=== PATIENT | male | born 1960 | race Caucasian/White ===

== ENCOUNTER 2017-07-14 23:11 | Inpatient (IN) | payer MEDICARE, OTHER ==
[~2017-07-14] VITALS: Ht 193 cm; Wt 117.9 kg
[~2017-07-14 23:11] MED LIST: CENTRUM SILVER1 EAC3 PO; DOXYCYCLINE HY100 MG PO; FUROSEMIDE40 MG PO; HUMULIN N100 UNITS/; HUMULIN R100 UNIT/2; IRON325 M1; KRISTALOSE20 GM PO; NADOLOL20 MG PO; SPIRONOLACTONE50 MG PO; VITAMIN D1000 UNI1 PO
--- OUTSIDE RECORDS SUMMARY | 2017-07-14 23:14 | XMS REPORT | Clinical Summary ---
Author Author [facility] Organization [facility] Address Unknown Phone Unavailable Care Team Providers Care Twist Packer Name Role Phone Unknown, Phys PCP Unavailable Allergies Active Allergy Reactions Severity Noted Date Comments Morphine 10/09/2015 Scratching; hives Opioids - Morphine 11/27/2015 Analogues Other High 10/14/2015 Cloth tape Current Medications Prescription Sig. Disp. Refills Start End Date Status Date omeprazole magnesium 20 Take 1 capsule by mouth 2 Active mg capsule,delayed (two) times a day. release(DR/EC) furosemide (LASIX) 40 MG Take 40 mg by mouth Active tablet daily. nadolol (CORGARD) 20 MG Take 10 mg by mouth Active tablet daily. spironolactone Take 50 mg by mouth Active (ALDACTONE) 50 MG tablet daily. loratadine (WAL-ITIN) 10 Take 10 mg by mouth Active mg tablet daily. For allergies cholecalciferol, vitamin Take 2,000 Units by mouth Active D3, (VITAMIN D3) 2,000 daily. unit tablet MULTIVIT-MINERALS/FOLIC Take 1 tablet by mouth 2 Active ACID (SPECTRAVITE ADULT (two) times a day. ORAL) BUMETanide (BUMEX) 2 MG Take 2 mg by mouth 2 Active tablet (two) times a day. riFAXimin (XIFAXAN) 550 Take 550 mg by mouth 2 Active mg tablet (two) times a day. tamoxifen (NOLVADEX) 10 Take 10 mg by mouth 2 Active MG chemo tablet (two) times a day. INSULIN REGULAR, HUMAN Inject 18 Units as Active (NOVOLIN R INJ) directed 3 (three) times a day. 18 units in the morning, 16 units during lunch, and 15 units at dinner time insulin NPH (NovoLIN N) Inject under the skin 2 Active 100 unit/mL injection (two) times a day before meals. 30 units in the morning and 20 units at bedtime zolpidem (AMBIEN) 10 mg Take 20 mg by mouth Active tablet nightly as needed for sleep. potassium chloride Take 10 mEq by mouth Active (K-DUR,KLOR-CON) 10 MEQ daily. CR tablet GENERLAC 10 gram/15 mL TAKE 30 ML BY MOUTH TID. 5 02/22/20 Active solution TITRATE TO HAVE 3 TO 5 16 SOFT BOWEL MOVEMENTS PER DAY UNABLE TO FIND Place 4 drops under the Active tongue daily. Med Name: special allergy drops made by Dr. Frazier Active Problems Problem Noted Date Periumbilical abdominal pain 05/20/2016 Disorder of liver 05/20/2016 S/P hernia repair 05/03/2016 Ventral hernia 05/03/2016 Preop cardiovascular exam 04/05/2016 Type 2 diabetes mellitus without complication 04/05/2016 Chronic nonalcoholic liver disease 03/09/2016 Hernia of abdominal cavity 03/09/2016 Incisional hernia with obstruction but no gangrene 10/15/2015 Non-alcoholic cirrhosis 10/09/2015 Esophageal varices without bleeding 10/09/2015 Encounters Date Type Specialty Care Team Description 12/29/2016 Telephone Transplant Mitzy Guerrero RN Referral - Hepatobiliary Txp after 07/13/2016 Immunizations Name Dates Previously Given Next Due INFLUENZA QUAD PF 05/05/2016 Family History Medical History Relation Name Comments Hypertension Brother Diabetes Father Hypertension Father Hypertension Mother Relation Name Status Comments Brother Father Mother Social History Tobacco Use Types Packs/Day Years Used Date Former Smoker 4 Smokeless Tobacco: Never Used Alcohol Use Drinks/Week oz/Week Comments No Sex Assigned at Date Recorded Not on file Last Filed Vital Signs Vital Sign Reading Time Taken Blood Pressure 142/64 07/14/2016 10:16 AM CDT Pulse 70 07/14/2016 10:16 AM CDT Temperature - - Respiratory Rate - - Oxygen Saturation 100% 07/14/2016 10:16 AM CDT Inhaled Oxygen - - Concentration Weight 117 kg (259 lb) 07/14/2016 10:16 AM CDT Height 190.5 cm (6' 3") 07/14/2016 10:16 AM CDT Body Mass Index 32.37 07/14/2016 10:16 AM CDT Plan of Treatment Health Maintenance Due Date Last Done Comments FOOT EXAM 1970 OPHTHALMOLOGY EXAM 1970 COLONOSCOPY 2010 INFLUENZA VACCINE 11/22/2016 05/05/2016 Implants Implanted Type Area Delivery Aide Device Expiration Model / Identifier Date Serial / Lot Mesh Hrnia Phasix 6 X 8in Surgical N/A: [employer] 12/19/2017 [id number] / [id number] - [id number] Mesh or Abdomen, / Implanted: 05/03/2016 (Quantity not Tissue Middle [id number] on file) Barrier Quadrant/N Products on Specific Procedures Procedure Name Priority Date/Time Associated Diagnosis Comments CV STRESS TEST NUCLEAR Routine 07/15/2016 Pulmonary hypertension Results for this CARDIO 2:36 PM CDT Abnormal EKG procedure are in the results section. ECHOCARDIOGRAM 2D Routine 07/14/2016 Pulmonary hypertension Results for this COMPLETE W MMODE SPECTRAL 10:10 AM CDT Abnormal EKG procedure are in the COLOR DOPPLER (94121) results section. after 07/13/2016 Results * Cv exercise treadmill stress (for nuclear or echo) (07/15/2016 2:36 PM) Component Value Ref Range Resting HR 71 Resting BP 142 Peak MET Achieved 1.0 Protocol Name Lexiscan Time in Exercise Phase 00:00:11 Max Systolic BP 153 Max Diastolic BP 67 Max Heart Rate 84 Max Predicted Heart Rate 164 Target HR Formula (220 - Age)*85% Test Indication Abnormal ECG Pulmonary Hypertension Arrhy During Ex ECG Interp Before EX ECG Interp During Ex Ex Summary Comment Overall HR Response to Exercise Overall BP Response To Exercise Reason for Termination Lexiscan protocol/headache Stress Test Impression Waveform interpreted in report associated with image study. No interpretation is provided as part of this Stress ECG report.--Electronically Signed By Helen SHER, Glenn Redman ([id number]), make up editor Karin Oliver ([id number]) on 07/19/2016 11:46:34 AM Specimen Performing Laboratory [facility] [address] [id number] * Cv myocardial perfusion (07/15/2016 2:36 PM) Specimen Performing Laboratory [facility] [address] [place] [address] Narrative Nuclear Cardiology Laboratory [address] [facility], [address] [place] [phone] Fax: Myocardial Perfusion Imaging Report Pat.Name:DOUGLAS MOLINA Pat.ID:[id number] St.Date: 07/14/2016 Refer.MD:SHERIDAN MELENDEZ MD Exam Time: 11:00:00 AM Study Type:Myocardial Perfusion Imaging Height:73inWeight:259lb BSA: 2.4 s7VNWEtq:1959,56Y Sex: MALE Nuclear Tech:Pita Carter, [facility] Pat. Stat.:OutpatientNuclear Event ID:[id number] Order ID:[id number] Reason for Study:Abnormal EKG* History / Clinical:DM, ESLD, HLD Procedures:Two Day Stress / Rest Race: Clinical Symptoms:Regadenoson SUMMARY: BASELINE ECGNormal Sinus Rhythm, LAFB, Nonspecific ST abnormality STRESS TEST RESULTS Maximal Predicted HR164 beats/minute 85% Maximal Predicted HR 139 beats/minute Stress Test Duration1 minutes 00 seconds Resting Heart Rate71 beats/minute Maximal Heart Rate84 beats/minute Resting Blood Vukltzol979/64 mmHg Maximal Blood Rpfawebt565/67 mmHg % Maximal Heart Rate Achieved 51% Symptoms During TestHeadache, Shortness of breath Reason for Stopping TestAs per regadenoson protocol Maximal ST-segment shiftNone Stress-Induced Arrhythmias None Ischemic electrocardiographic changes (ST-segment depression) did not occur at peak regadenoson stress._. STRESS TEST INTERPRETATION Normal maximal regadenoson stress test. SCINTIGRAPHIC RESULTS Perfusion Defect Size (% LV) 0 % Total 0 % Ischemia 0 % Scar Left Ventricular Perfusion Results There is normal tracer distribution during stress and rest. Gated SPECT Results The post-stress left ventricular ejection fraction is 74 % with normal regional wall motion and left ventricular thickening.Left ventricular end-diastolic volume is 159 ml; end-systolic volume is41 ml. The left ventricle is mildly enlarged at stress and at rest.The right ventricle is enlarged with normal wall motion. Conclusion Normal regadenoson Tc-99m tetrofosmin myocardial perfusion study. The left ventricular ejection fraction is normal. Moderate LV and RV hypertrophy are present.Mild LV and RV dilatation are present. Comments Patients with a normal stress myocardial perfusion study have a low (< 1%) annual risk of cardiac or nonfatal myocardial infarction. Study Quality/Artifacts The study quality is good. The mild reduction in apical-septal, mid and basal inferior wall counts during stress is probably due to diaphragmatic and other soft tissue attenuation artifacts rather than coronary artery disease. Comparison to Previous Study The previous study dated 08/05/2008 was also normal with a left ventricular ejection fraction of 60%. Signed 07/16/2016 06:38 PM Glenn Cervantes MD Procedure Note Interface, Radiology Results In - 07/16/2016 6:39 PM CDT Nuclear Cardiology Laboratory [address] [place] [address], [address] [place] [address] Myocardial Perfusion Imaging Report Pat.Name: DOUGLAS MOLINA Pat.ID: [id number] St.Date: 07/14/2016 Refer.MD: SHERIDAN MELENDEZ MD Exam Time: 11:00:00 AM Study Type:Myocardial Perfusion Imaging Height: 73in Weight: 259lb BSA: 2.4 m2 Age: 11 1960,56Y Sex: MALE Nuclear Tech:RUI SantanaMT, [facility](CT) Pat. Stat.:Outpatient Nuclear Event ID:[id number] Order ID: [id number] Reason for Study:Abnormal EKG* History / Clinical:DM, ESLD, HLD Procedures:Two Day Stress / Rest Race: Clinical Symptoms:Regadenoson SUMMARY: BASELINE ECG Normal Sinus Rhythm, LAFB, Nonspecific ST abnormality STRESS TEST RESULTS Maximal Predicted HR 164 beats/minute 85% Maximal Predicted HR 139 beats/minute Stress Test Duration 1 minutes 00 seconds Resting Heart Rate 71 beats/minute Maximal Heart Rate 84 beats/minute Resting Blood Pressure 142/64 mmHg Maximal Blood Pressure 153/67 mmHg % Maximal Heart Rate Achieved 51% Symptoms During Test Headache, Shortness of breath Reason for Stopping Test As per regadenoson protocol Maximal ST-segment shift None Stress-Induced Arrhythmias None Ischemic electrocardiographic changes (ST-segment depression) did not occur at peak regadenoson stress. _. STRESS TEST INTERPRETATION Normal maximal regadenoson stress test. SCINTIGRAPHIC RESULTS Perfusion Defect Size (% LV) 0 % Total 0 % Ischemia 0 % Scar Left Ventricular Perfusion Results There is normal tracer distribution during stress and rest. Gated SPECT Results The post-stress left ventricular ejection fraction is 74 % with normal regional wall motion and left ventricular thickening. Left ventricular end-diastolic volume is 159 ml; end-systolic volume is 41 ml. The left ventricle is mildly enlarged at stress and at rest. The right ventricle is enlarged with normal wall motion. Conclusion Normal regadenoson Tc-99m tetrofosmin myocardial perfusion study. The left ventricular ejection fraction is normal. Moderate LV and RV hypertrophy are present. Mild LV and RV dilatation are present. Comments Patients with a normal stress myocardial perfusion study have a low (< 1%) annual risk of cardiac or nonfatal myocardial infarction. Study Quality/Artifacts The study quality is good. The mild reduction in apical-septal, mid and basal inferior wall counts during stress is probably due to diaphragmatic and other soft tissue attenuation artifacts rather than coronary artery disease. Comparison to Previous Study The previous study dated 08/05/2008 was also normal with a left ventricular ejection fraction of 60%. Signed 07/16/2016 06:38 PM Glenn Cervantes MD * Clinic Performed Echocardiogram complete w contrast and 3D if needed (2016 10:10 AM) Specimen Performing Laboratory [facility] [address] [place] [address] [facility] Echocardiography Report Pat.Name:DOUGLAS MOLINA Pat.ID:[id number] .Date: 07/14/2016 Refer.MD:SHERIDAN MELENDEZ MD Exam Time: 8:18:00 AMStudy Type:Routine Echo Height:75inWeight:259lb BSA: 2.45 m2 DOBAge:1959,56Y Sex: MALEBP: 151/80 HR:66 bpmSonogrphr: Sherine Yeung RDCS Pat. Stat.:OutpatientRoom:[facility] TapeVol: [facility], Study Status:Final Echo Event ID:[id number] Order ID:[id number] Reason for Study:Pulmonary Hypertension, Abnormal EKG History / Clinical:Cancer, Diabetes, Cirrhosis Procedures:2D Echo, Colorflow Doppler, Intravenous Saline Contrast Race:C FINDINGS: LV: LV size is normal. There is moderate concentric LV hypertrophy.LV function is hyperdynamic. Overall wall motionis hyperdynamic. Estimated EF is >70%. RV: RV size is mildly enlarged. RV function is lower limits of normal. LA: LA volume is mildly enlarged. RA: RA volume is upper limits of normal. AO: Aortic root diameter is normal. DEISI: No pericardial effusion. AV: No structural AV abnormalities noted. MV: No structural MV abnormalities noted. PV: No structural PV abnormalities noted. TV: No structural TV abnormalities noted. Other:Insufficient TR jet to estimate PA systolic pressure. However,based on RVOT PW Doppler signal and the incomplete TRsignal, PA systolic pressure islikely elevated. [facility] for assessment of PA pressures, if clinically indicated. MEASUREMENTS: 2D Parasternal Long [place] LVIDd5.7 cmIndex 2.3 cm/m LVPWd1 cm LVIDs2.9 cmLA Ds 3.9 cm LV%fs 48.2 % Ao Rtd 3.9 cm Index1.6 cm/m IVSd 1.1 cm LA Sng Plane LA Area 28.1 cm2(8.8-23.4) LA Vol94.2 ml Index38.5 ml/m LA LngAx 6.9 cm RA Sng Plane RA Area 21.8 cm2(8.3-19.5) RA Vol72.5 ml Index29.6 ml/m RA LngAx 5.8 cm DOPPLER LVOT Stroke Vol LVOT 2.1 cmLVOT CO 7.6 l/min LVOT TVI31.7 cmLVOT CI 3.1 l/m/m2 LVOT Tm313 msecHR 67 bpm LVOT SV113.1 ml Signed 07/15/2016 03:06 PM Enio Leon M.D. Procedure Note Interface, Radiology Results In - 07/15/2016 3:07 PM CDT [facility] Echocardiography Report Pat.Name: DOUGLAS MOLINA.ID: [id number] .Date: 07/14/2016 Refer.MD: SHERIDAN MELENDEZ MD Exam Time: 8:18:00 AM Study Type:Routine Echo Height: 75in Weight: 259lb BSA: 2.45 m2 Age: 11 1960,56Y Sex: MALE BP: 151/80 HR: 66 bpm Sonogrphr: Sherine Yeung RDCS Pat. Stat.:Outpatient Room: 19 [facility] Vol: [facility], Study Status:Final Echo Event ID:[id number] Order ID: [id number] Reason for Study:Pulmonary Hypertension, Abnormal EKG History / Clinical:Cancer, Diabetes, Cirrhosis Procedures:2D Echo, Colorflow Doppler, Intravenous Saline Contrast Race: C FINDINGS: LV: LV size is normal. There is moderate concentric LV hypertrophy. LV function is hyperdynamic. Overall wall motion is hyperdynamic. Estimated EF is >70%. RV: RV size is mildly enlarged. RV function is lower limits of normal. LA: LA volume is mildly enlarged. RA: RA volume is upper limits of normal. AO: Aortic root diameter is normal. DEISI: No pericardial effusion. AV: No structural AV abnormalities noted. MV: No structural MV abnormalities noted. PV: No structural PV abnormalities noted. TV: No structural TV abnormalities noted. Other: Insufficient TR jet to estimate PA systolic pressure. However, based on RVOT PW Doppler signal and the incomplete TR signal, PA systolic pressure is likely elevated. Recommend [facility] for assessment of PA pressures, if clinically indicated. MEASUREMENTS: 2D Parasternal Long [place] LVIDd 5.7 cm Index 2.3 cm/m LVPWd 1 cm LVIDs 2.9 cm LA Ds 3.9 cm LV%fs 48.2 % Ao Rtd 3.9 cm Index 1.6 cm/m IVSd 1.1 cm LA Sng Plane LA Area 28.1 cm2 (8.8-23.4) LA Vol 94.2 ml Index 38.5 ml/m LA LngAx 6.9 cm RA Sng Plane RA Area 21.8 cm2 (8.3-19.5) RA Vol 72.5 ml Index 29.6 ml/m RA LngAx 5.8 cm DOPPLER LVOT Stroke Vol LVOT 2.1 cm LVOT CO 7.6 l/min LVOT TVI 31.7 cm LVOT CI 3.1 l/m/m2 LVOT Tm 313 msec HR 67 bpm LVOT SV 113.1 ml Signed 07/15/2016 03:06 PM Enio Leon M.D. after 07/13/2016 Insurance Payer Benefit Subscriber ID Type Phone Address Plan / Group HUMANA MEDICARE HUMANA HMO xxxxxxxxx HMO GOLD PLUS MEDICARE Work: [id number] [place] [address] Home:
[2017-07-14] MEDS ORDERED: PANTOPRAZOLE 40 MG 10ML VIAL IV STA (23:56)
[2017-07-14] MEDS ORDERED: HYDROMORPHONE 1MG/1ML INJ IV STA (23:56)
[2017-07-14] MEDS ORDERED: ONDANSETRON HCL INJ 2 MG/ML VIAL IV STA (23:56)
[2017-07-15] VITALS (9 sets, daily range): BP systolic 112–157; BP diastolic 76–89
[2017-07-15 00:33] LABS: BASOPHILS % 0.7 % (0.0-1.0); EOSINOPHILS # (AUTO) 0.1 (0.0-0.4); HEMATOCRIT 39.6 % (38.2-49.6); HEMOGLOBIN 14.5 g/dL (14.0-18.0); LYMPHOCYTES # (AUTO) 0.7 (1.0-3.2); LYMPHOCYTES % 16.5 % (18.0-39.1); MEAN CORPUSCULAR HEMOGLOBIN 31.4 pg (28-32); MEAN CORPUSCULAR HGB CONC 36.6 g/dL (31-35); MEAN CORPUSCULAR VOLUME 85.7 fL (81-99); MONOCYTES # (AUTO) 0.5 (0.2-0.8); MONOCYTES % 11.9 % (4.4-11.3); NEUTROPHILS # (AUTO) 2.7 (2.1-6.9); NEUTROPHILS % 67.7 % (38.7-80.0); RED BLOOD COUNT 4.62 x10e6/uL (4.3-5.7)
[2017-07-15 00:39] LABS: PLATELET COUNT 49 x10e3/uL (140-360)
[2017-07-15 00:43] LABS: PARTIAL THROMBOPLASTIN TIME 35.5 seconds (23.8-35.5)
[2017-07-15 01:09] LABS: ALANINE AMINOTRANSFERASE 74 IU/L (0-55); ALBUMIN 2.6 g/dL (3.5-5.0); ALBUMIN/GLOBULIN RATIO 0.7 (0.8-2.0); ALKALINE PHOSPHATASE 150 IU/L (40-150); AMYLASE 58 U/L (25-125); ANION GAP 12.4 mmol/L (8-16); BLOOD UREA NITROGEN 12 mg/dL (7-26); BUN/CREATININE RATIO 12 (6-25); CALCIUM 8.8 mg/dL (8.4-10.2); CARBON DIOXIDE 26 mmol/L (22-29); CHLORIDE 100 mmol/L (98-107); CREATINE KINASE 209 IU/L (30-200); CREATININE, SERUM 0.98 mg/dL (0.72-1.25); EST GLOMERULAR FILTRATION RATE > 60 ML/MIN (60-); LIPASE 37 U/L (8-78); POTASSIUM 3.4 mmol/L (3.5-5.1); SODIUM 135 mmol/L (136-145)
[2017-07-15 01:12] LABS: GLUCOSE 407 mg/dL (74-118)
[2017-07-15 01:29] LABS: CLARITY,URINE CLEAR (CLEAR); COLOR,URINE YELLOW (YELLOW); KETONES,URINE NEGATIVE (NEGATIVE); LEUKOCYTE ESTERASE ,URINE NEGATIVE (NEGATIVE); NITRITE,URINE NEGATIVE (NEGATIVE); PROTEIN,URINE DIPSTICK NEGATIVE (NEGATIVE); URINE UROBILINOGEN 8 mg/dL (0.2 - 1)
[2017-07-15] MEDS ORDERED: SODIUM CHLORIDE 0.9% 50ML 50 ML ONE (01:30)
[2017-07-15] MEDS ORDERED: IOPAMIDOL 370 MG/ML 200 ML INFUS..BTL INJ ONE (01:31)
[2017-07-15 01:33] LABS: BILIRUBIN,URINE 1+ (NEGATIVE)
[2017-07-15 01:42] LABS: EPITHELIAL CELLS,URINE FEW /LPF; RBC,URINE 0-5 /HPF (0-5); WBC,URINE (MAN) 0-5 /HPF (0-5)
[2017-07-15] MEDS ORDERED: INSULIN LISPRO 100 UNIT/1 ML 3ML VIAL SQ STA (01:58)
[2017-07-15] MEDS ORDERED: MAGNESIUM SULFATE 2GM/50ML 50 ML IV ONE (02:00)
[2017-07-15] MEDS ORDERED: SODIUM CHLORIDE 0.9% 500ML 500 ML IV ONE (02:00)
--- NOTE | 2017-07-15 02:08 | Diagnostic Imaging Report ---
EXAM: CT ABDOMEN AND PELVIS with IV CONTRAST DATE: 07/15/2017 12:08 AM Time stamp on Exam: 0132 hours INDICATION: Right upper quadrant pain COMPARISON: CT of the abdomen July 07, 2008 TECHNIQUE: The abdomen and pelvis were scanned using a multidetector helical scanner. Coronal and sagittal reformations were obtained. Routine protocol performed. IV Contrast: 100 cc Isovue-370 Oral Contrast: Water CTDIvol has been reviewed. It is below the limits set by the Radiation Protocol Committee (RPC). FINDINGS: LOWER THORAX: No consolidations LIVER: Stable 1 cm cyst in the right lobe of the liver near the gallbladder. BILIARY: Cholelithiasis with moderately distended gallbladder. No ductal dilatation. SPLEEN: Splenomegaly up to 20 cm in diameter, this is slightly decreased when compared to prior exam in 2008. PANCREAS: No masses ADRENALS: No nodules KIDNEYS: Symmetric perfusion. No enhancing masses. No hydronephrosis. GI TRACT: No distention, wall thickening or evidence of obstruction. VESSELS: Large splenic and esophageal varices, similar to prior exam. Left abdominal portal systemic shunt. Chronic thrombosis of the main portal vein. 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 PERITONEUM/RETROPERITONEUM: No free air or fluid LYMPH NODES: No lymphadenopathy REPRODUCTIVE ORGANS: Unremarkable BLADDER: Unremarkable SOFT TISSUES: Unremarkable BONES: Old right-sided rib fractures. IMPRESSION: Relatively stable findings of chronic portal vein thrombosis, splenomegaly, and large splenic and esophageal varices. Cholelithiasis without CT findings of cholecystitis. Signed by: Dr. Samantha Alejandre M.D. on 07/15/2017 2:04 AM
--- NOTE | 2017-07-15 02:09 | Diagnostic Imaging Report ---
EXAM: CHEST SINGLE (PORTABLE), AP 1 view INDICATION: Abdominal pain COMPARISON: AP view the chest October 28, 2015 FINDINGS: LINES/TUBES: None LUNGS: No consolidations or edema. PLEURA: No effusions or pneumothorax. HEART AND MEDIASTINUM: Stable appearance. BONES AND SOFT TISSUES: No acute findings. IMPRESSION: No acute thoracic abnormality. Signed by: Dr. Samantha Alejandre M.D. on 07/15/2017 2:06 AM
[2017-07-15] MEDS ORDERED: PIPER-TAZ 3.375 GM 50 ML IV SCH (02:45)
[2017-07-15 02:58] LABS: INR 1.5
[2017-07-15] MEDS ORDERED: SODIUM CHLORIDE 0.9% 1000ML 1,000 ML IV SCH (04:13)
[2017-07-15] MEDS ORDERED: METRONIDAZOLE 500MG/NS 100ML 100 ML IV SCH ×2 (04:30→11:00)
[2017-07-15] MEDS ORDERED: DEXTROSE 50% SYRINGE 50 ML IV PRN (04:30)
--- OUTSIDE RECORDS SUMMARY | 2017-07-15 04:42 | XMS REPORT | Clinical Summary ---
Author Author [facility] Organization [place] [facility] Address Unknown Phone Unavailable Care Team Providers Care Associate Professor Of Geography Name Role Phone Unknown, Phys PCP Unavailable [...] Guerrero RN Referral - Hepatobiliary Txp after 07/14/2016 Immunizations Name Dates Previously Given Next Due [...] VACCINE 11/22/2016 05/05/2016 Implants Implanted Type Area Groover And Turner Device Expiration Model / Identifier Date Serial / Lot Mesh Hrnia Phasix 6 X 8in Surgical N/A: [employer] 12/19/2017 [id number] / [id number] - [id number] Mesh or Abdomen, / Implanted: 05/03/2016 (Quantity not Tissue Middle [id number] on file) Barrier Quadrant/N Products on Specific Procedures Procedure Name Priority Date/Time Associated Diagnosis Comments CV STRESS TEST NUCLEAR Routine 07/15/2016 Pulmonary hypertension Results for this CARDIO 2:36 PM CDT Abnormal EKG procedure are in the results section. ECHOCARDIOGRAM 2D Routine 07/14/2016 Pulmonary hypertension Results for this COMPLETE W MMODE SPECTRAL 10:10 AM CDT Abnormal EKG procedure are in the COLOR DOPPLER (44623) results section. after 07/14/2016 Results * Cv exercise treadmill stress (for [...] report.--Electronically Signed By Helen SHER, Glenn Redman ([id number]), movie editor Karin Oliver ([id number]) on 07/19/2016 11:46:34 AM Specimen Performing Laboratory [facility] [address] [id number] * Cv myocardial perfusion (07/15/2016 2:36 PM) Specimen Performing Laboratory [facility] [address] [place] [address] Narrative Nuclear Cardiology Laboratory [address] [facility], [address] [place] [phone] Fax: Myocardial Perfusion Imaging Report Pat.Name:DOUGLAS MOLINA Pat.ID:[id number] St.Date: 07/14/2016 Refer.MD:SHERIDAN MELENDEZ MD Exam Time: 11:00:00 AM Study Type:Myocardial Perfusion Imaging Height:73inWeight:259lb BSA: 2.4 v6JZRHko:1959,56Y Sex: MALE Nuclear Tech:Pita Carter, [facility] Pat. Stat.:OutpatientNuclear Event ID:[id number] Order ID:[id number] Reason for Study:Abnormal EKG* History / Clinical:DM, ESLD, HLD Procedures:Two Day Stress / Rest Race: Clinical Symptoms:Regadenoson SUMMARY: BASELINE ECGNormal Sinus Rhythm, LAFB, Nonspecific ST abnormality STRESS TEST RESULTS Maximal Predicted HR164 beats/minute 85% Maximal Predicted HR 139 beats/minute Stress Test Duration1 minutes 00 seconds Resting Heart Rate71 beats/minute Maximal Heart Rate84 beats/minute Resting Blood Ymmryizc853/64 mmHg Maximal Blood Djgfaeum631/67 mmHg % Maximal Heart Rate Achieved 51% [...] 07/16/2016 6:39 PM CDT Nuclear Cardiology Laboratory [address] [place] [address], [address] [place] [address] Myocardial Perfusion Imaging Report Pat.Name: DOUGLAS MOLINA Pat.ID: [id number] St.Date: 07/14/2016 Refer.MD: SHERIDAN MELENDEZ MD Exam Time: 11:00:00 AM Study Type:Myocardial Perfusion Imaging Height: 73in Weight: 259lb BSA: 2.4 m2 Age: 11 1960,56Y Sex: MALE Nuclear Tech:RUI SantanaMT, [facility]([place]) Pat. Stat.:Outpatient Nuclear Event ID:[id number] Order ID: [id number] Reason for Study:Abnormal EKG* History / Clinical:DM, [...] 10:10 AM) Specimen Performing Laboratory [facility] [address] [place] [address] [facility] Echocardiography Report Pat.Name:DOUGLAS MOLINA Pat.ID:[id number] .Date: 07/14/2016 Refer.MD:SHERIDAN MELENDEZ MD Exam Time: 8:18:00 AMStudy Type:Routine Echo Height:75inWeight:259lb BSA: 2.45 m2 DOBAge:1959,56Y Sex: MALEBP: 151/80 HR:66 bpmSonogrphr: Sherine Yeung RDCS Pat. Stat.:OutpatientRoom:[facility] TapeVol: [facility], Study Status:Final Echo Event ID:[id number] Order ID:[id number] Reason for Study:Pulmonary Hypertension, Abnormal EKG History [...] incomplete TRsignal, PA systolic pressure islikely elevated. Recommend[facility] for assessment of PA pressures, if clinically indicated. MEASUREMENTS: 2D Parasternal Long [place] LVIDd5.7 cmIndex 2.3 cm/m LVPWd1 cm LVIDs2.9 [...] Results In - 07/15/2016 3:07 PM CDT [facility] Echocardiography Report Pat.Name: DOUGLAS MOLINA.ID: [id number] .Date: 07/14/2016 Refer.MD: SHERIDAN MELENDEZ MD Exam Time: 8:18:00 AM Study Type:Routine Echo Height: 75in Weight: 259lb BSA: 2.45 m2 Age: 11 1960,56Y Sex: MALE BP: 151/80 HR: 66 bpm Sonogrphr: Sherine Yeung RDCS Pat. Stat.:Outpatient Room: 19 [facility] Vol: [facility], Study Status:Final Echo Event ID:[id number] Order ID: [id number] Reason for Study:Pulmonary Hypertension, Abnormal EKG History [...] if clinically indicated. MEASUREMENTS: 2D Parasternal Long [place] LVIDd 5.7 cm Index 2.3 cm/m LVPWd [...] 07/15/2016 03:06 PM Enio Leon M.D. after 07/14/2016 Insurance Payer Benefit Subscriber ID Type Phone Address Plan / Group HUMANA MEDICARE HUMANA HMO xxxxxxxxx HMO GOLD PLUS MEDICARE Work: [id number] [place] [id number] Home:
--- OUTSIDE RECORDS SUMMARY | 2017-07-15 04:42 | XMS REPORT ---
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 Allergies, Adverse Reactions, Alerts This patient has no known allergies or adverse reactions. Medications This patient has no known medications. Results Test Description Test Time Test Comments Text Results Atomic Results Result Comments CT ABDOMEN/PELVIS W [place] [address] Patient Name: DOUGLAS MOLINA MR #: [id number] : 1960 Age/Sex: 57/M Req #: [id number] Adm Physician: Ordered by: CHRISTO BEGUM MD Report #: [id number] Location: ER Room/Bed: Procedure: [id number] CT/CT ABDOMEN/PELVIS W Exam Date: Exam Time: REPORT STATUS: Signed EXAM: CT ABDOMEN AND PELVIS with IV CONTRAST DATE: 07/15/2017 12:08 AM Time stamp on Exam: 0132 hours INDICATION: Right upper quadrant pain COMPARISON: CT of the abdomen June TECHNIQUE: The abdomen and pelvis were scanned using a multidetector helical scanner. Coronal and sagittal reformations were obtained. Routine protocol performed. IV Contrast: 100 cc Isovue-370 Oral Contrast: Water CTDIvol has been reviewed. It is below the limits set by the Radiation Protocol Committee (RPC). FINDINGS: LOWER THORAX: No consolidations LIVER : Stable 1 cm cyst in the right lobe of the liver near the gallbladder. BILIARY: Cholelithiasis with moderately distended gallbladder. No ductal dilatation. SPLEEN: Splenomegaly up to 20 cm in diameter, this is slightly decreased when compared to prior exam in 2008. PANCREAS: No masses ADRENALS: No nodules KIDNEYS: Symmetric perfusion. No enhancing masses. No hydronephrosis. GI TRACT: No distention, wall thickening or evidence of obstruction. VESSELS: Large splenic and esophageal varices, similar to prior exam. Left abdominal portal systemic shunt. Chronic thrombosis of the main portal vein. 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 PERITONEUM/RETROPERITONEUM: No free air or fluid LYMPH NODES: No lymphadenopathy REPRODUCTIVE ORGANS: Unremarkable BLADDER: Unremarkable SOFT TISSUES: Unremarkable BONES: Old right- sided rib fractures. IMPRESSION: Relatively stable findings of chronic portal vein thrombosis, splenomegaly, and large splenic and esophageal varices. Cholelithiasis without CT findings of cholecystitis. Signed by: Dr. Jose De Jesus Carrera M.D. on 07/15/2017 2:04 AM Dictated By: JOSE DE JESUS CARRERA MD 3 Transcribed By: KULWANT on 07/15/17203 COPY TO: CHRISTO BEGUM MD CHEST SINGLE (PORTABLE) [place] [address] Patient Name: DOUGLAS MOLINA MR #: [id number] : 1960 Age/Sex: 57/M Req #: [id number] Adm Physician: Ordered by: CHRISTO BEGUM MD Report #: [id number] Location: ER Room/Bed: Procedure: [id number] DX/CHEST SINGLE (PORTABLE) Exam Date: Exam Time: REPORT STATUS: Signed EXAM: CHEST SINGLE (PORTABLE ), AP 1 view INDICATION: Abdominal pain COMPARISON: AP view the chest October FINDINGS: LINES/TUBES: None LUNGS: No consolidations or edema. PLEURA: No effusions or pneumothorax. HEART AND MEDIASTINUM: Stable appearance. BONES AND SOFT TISSUES: No acute findings. IMPRESSION: No acute thoracic abnormality. Signed by: Dr. Jose De Jesus Carrera M.D. on 07/15/2017 2:06 AM Dictated By: JOSE DE JESUS CARRERA MD 5 Transcribed By: KULWANT on 07/15/17205 COPY TO: CHRISTO BEGUM MD
[2017-07-15] MEDS ORDERED: XIFAXAN550 MG PO (05:59)
[2017-07-15] MEDS ORDERED: POTASSIUM CHLO10 MEQ PO (05:59)
[2017-07-15] MEDS ORDERED: AMBIEN10 MG PO (05:59)
[2017-07-15] MEDS ORDERED: LEVEMIR100 UNIT/1 SQ (05:59)
[2017-07-15] MEDS ORDERED: BUMETANIDE2 MG PO (05:59)
[2017-07-15] MEDS ORDERED: NEXIUM40 MG (05:59)
[2017-07-15] MEDS ORDERED: NOVOLOG100 UNITS1 (05:59)
[2017-07-15] MEDS ORDERED: BUMETANIDE2 MG (05:59)
[2017-07-15] MEDS ORDERED: INSULIN REGULAR, HUMAN 100 UNIT/1 ML 3ML VIAL SQ SCH (06:00)
[2017-07-15] MEDS: HYDROMORPHONE 1MG/1ML INJ IV PRN ×3 (06:22→19:10)
[2017-07-15] MEDS: ONDANSETRON HCL INJ 2 MG/ML VIAL IV PRN ×3 (06:22→19:10)
[2017-07-15 06:25] LABS: BASOPHILS % 0.7 % (0.0-1.0); EOSINOPHILS # (AUTO) 0.1 (0.0-0.4); EOSINOPHILS % 4.4 % (0.0-6.0); HEMATOCRIT 35.6 % (38.2-49.6); HEMOGLOBIN 12.9 g/dL (14.0-18.0); LYMPHOCYTES # (AUTO) 0.6 (1.0-3.2); LYMPHOCYTES % 21.5 % (18.0-39.1); MEAN CORPUSCULAR HEMOGLOBIN 31.3 pg (28-32); MEAN CORPUSCULAR HGB CONC 36.2 g/dL (31-35); MEAN CORPUSCULAR VOLUME 86.4 fL (81-99); MONOCYTES # (AUTO) 0.3 (0.2-0.8); MONOCYTES % 10.9 % (4.4-11.3); NEUTROPHILS # (AUTO) 1.8 (2.1-6.9); NEUTROPHILS % 62.5 % (38.7-80.0); RED BLOOD COUNT 4.12 x10e6/uL (4.3-5.7); RED CELL DISTRIBUTION WIDTH 16.1 % (11.7-14.4)
[2017-07-15 06:27] LABS: PLATELET COUNT 45 x10e3/uL (140-360)
[2017-07-15 06:49] LABS: ALANINE AMINOTRANSFERASE 107 IU/L (0-55); ALBUMIN 2.3 g/dL (3.5-5.0); ALBUMIN/GLOBULIN RATIO 0.7 (0.8-2.0); ALKALINE PHOSPHATASE 140 IU/L (40-150); ANION GAP 11.4 mmol/L (8-16); BLOOD UREA NITROGEN 13 mg/dL (7-26); BUN/CREATININE RATIO 16 (6-25); CALCIUM 8.3 mg/dL (8.4-10.2); CARBON DIOXIDE 23 mmol/L (22-29); CHLORIDE 102 mmol/L (98-107); CREATININE, SERUM 0.82 mg/dL (0.72-1.25); EST GLOMERULAR FILTRATION RATE > 60 ML/MIN (60-); GLUCOSE 260 mg/dL (74-118); POTASSIUM 3.4 mmol/L (3.5-5.1); SODIUM 133 mmol/L (136-145)
[2017-07-15 06:59] LABS: MAGNESIUM 1.4 MG/DL (1.3-2.1)
[2017-07-15 07:05] LABS: CREATINE KINASE MB 3.4 ng/mL (0-5.0)
[2017-07-15] MEDS: PANTOPRAZOLE 40 MG 10ML VIAL IV SCH ×2 (09:16→17:00)
[2017-07-15] MEDS: PIPER-TAZ 3.375 GM 50 ML IV SCH ×3 (10:00→21:56)
[2017-07-15] MEDS ORDERED: ZOLPIDEM TARTRATE 10 MG TAB PO PRN (12:45)
--- NOTE | 2017-07-15 15:43 | History and Physical ---
CHIEF COMPLAINT: Abdominal pain, acute cholecystitis. HISTORY OF PRESENT ILLNESS: Patient is a 67-year-old male who came in with right upper quadrant abdominal pain. The patient has workup done in the emergency room. Patient has a CT scan of abdomen and pelvis. The test showed stable chronic portal hypertension thrombosis, splenomegaly, enlarged splenic and esophageal variceal with cholelithiasis. His liver enzymes are also elevated. The chemistry panel showed that his AST went from 138 to I 96 and ALT from 74 to 107. Alkaline phosphatase is 150. Blood sugars were also elevated as well. Patient is otherwise stable at this time. He is having pain with pain control. Baseline advanced liver cirrhosis with portal hypertension. The patient had attempted for liver transplant, but because of his portal hypertension, the plan was aborted. Patient is otherwise stable at this time. PAST MEDICAL HISTORY: Liver cirrhosis with portal hypertension. He has LOZANO, liver cirrhosis, diabetes type 2, insulin treatment. SOCIAL HISTORY: Patient does not smoke or use alcohol. No recreational drug use. ALLERGIES: TO TAPE AND MORPHINE. HOME MEDICATIONS: Bumex, Nexium, furosemide, NovoLog, Levemir, Nadolol, potassium, Rifaximin, and Ambien p.r.n. REVIEW OF SYSTEMS: Abdominal pain. Nausea, but no vomiting. PHYSICAL EXAMINATION: VITAL SIGNS: Temperature is 98, blood pressure 145/79, pulse rate 77, respirations 18. GENERAL: The patient is not acute distress, is awake. HEENT: Normocephalic and atraumatic. Anicteric. NECK: Supple grossly. PULMONARY: Diminished breath sounds. CARDIOVASCULAR: S1 and S2. Regular rate and rhythm. ABDOMEN: Soft. Generalized tenderness. No rebound or guarding. EXTREMITIES: No gross cyanosis or edema. NEUROLOGIC: No focal deficits. LABORATORY: Sodium is 133, potassium 3.4, chloride 102, bicarb 23, BUN is 13, creatinine 0.8, glucose 207. WBC is 2.9, hemoglobin 12.9, hematocrit 35.6, platelet is 45,000. Urinalysis had 3+ blood, 3+ glucose, leukocytes esterase negative. INR is 1.5. PTT is 35.5. CT scan abdomen and pelvis as mentioned above. IMPRESSION 1. Possible onric-sj-rxdbyve cholecystitis with elevation of liver enzyme and abdominal pain, but stable at this time. 2. 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 3. Diabetes type 2, on insulin therapy, uncontrolled. 4. Multiple chronic baseline problems. PLAN: IV antibiotics. Discontinue IV fluids. Full liquid diet. Resume home medication. Insulin sliding scale coverage. Insulin treatment. Consultation with surgery and GI. Will monitor the patient closely. Repeat electrolytes. Will monitor the patient with lab work and pain control. Job#: [id number] TROY
[2017-07-15] MEDS: INSULIN REGULAR, HUMAN 100 UNIT/1 ML 3ML VIAL SQ SCH ×2 (17:50→20:48)
[2017-07-15] MEDS: NADOLOL 40 MG TAB PO SCH (20:47)
[2017-07-15] MEDS: RIFAXIMIN 550 MG TABLET PO SCH (20:48)
[2017-07-15] MEDS: POTASSIUM CHLORIDE 20 MEQ TAB CR PO SCH (20:48)
[2017-07-15] MEDS: FUROSEMIDE 40 MG TAB PO SCH (20:48)
[2017-07-15] MEDS: INSULIN DETEMIR 100 UNIT/ML PEN SQ SCH (20:49)
[2017-07-15] MEDS ORDERED: SODIUM CHLORIDE 0.9% 250ML 250 ML ONE (21:43)
[2017-07-16 00:22] VITALS: BP 97/74
[2017-07-16] MEDS: PIPER-TAZ 3.375 GM 50 ML IV SCH ×4 (04:20→21:03)
[2017-07-16 05:15] VITALS: BP 106/88
[2017-07-16 07:23] LABS: BASOPHILS % 0.5 % (0.0-1.0); EOSINOPHILS # (AUTO) 0.5 (0.0-0.4); EOSINOPHILS % 8.5 % (0.0-6.0); HEMATOCRIT 36.8 % (38.2-49.6); HEMOGLOBIN 13.2 g/dL (14.0-18.0); LYMPHOCYTES # (AUTO) 0.9 (1.0-3.2); LYMPHOCYTES % 15.1 % (18.0-39.1); MEAN CORPUSCULAR HEMOGLOBIN 31.7 pg (28-32); MEAN CORPUSCULAR HGB CONC 35.9 g/dL (31-35); MEAN CORPUSCULAR VOLUME 88.2 fL (81-99); MONOCYTES # (AUTO) 0.8 (0.2-0.8); MONOCYTES % 12.2 % (4.4-11.3); NEUTROPHILS # (AUTO) 3.9 (2.1-6.9); NEUTROPHILS % 63.4 % (38.7-80.0); PLATELET COUNT 72 x10e3/uL (140-360); RED BLOOD COUNT 4.17 x10e6/uL (4.3-5.7); RED CELL DISTRIBUTION WIDTH 16.9 % (11.7-14.4)
[2017-07-16] MEDS: HYDROMORPHONE 1MG/1ML INJ IV PRN ×2 (07:30→21:59)
[2017-07-16] MEDS: ONDANSETRON HCL INJ 2 MG/ML VIAL IV PRN ×2 (07:30→21:59)
[2017-07-16] MEDS: INSULIN REGULAR, HUMAN 100 UNIT/1 ML 3ML VIAL SQ SCH ×4 (07:30→21:00)
[2017-07-16 07:34] LABS: ALANINE AMINOTRANSFERASE 127 IU/L (0-55); ALBUMIN 2.2 g/dL (3.5-5.0); ALBUMIN/GLOBULIN RATIO 0.7 (0.8-2.0); ALKALINE PHOSPHATASE 153 IU/L (40-150); ANION GAP 10.5 mmol/L (8-16); BLOOD UREA NITROGEN 13 mg/dL (7-26); BUN/CREATININE RATIO 11 (6-25); CALCIUM 7.9 mg/dL (8.4-10.2); CARBON DIOXIDE 25 mmol/L (22-29); CHLORIDE 106 mmol/L (98-107); EST GLOMERULAR FILTRATION RATE > 60 ML/MIN (60-); GLUCOSE 105 mg/dL (74-118); POTASSIUM 3.5 mmol/L (3.5-5.1); SODIUM 138 mmol/L (136-145)
[2017-07-16 08:00] VITALS: BP 115/74
[2017-07-16] MEDS ORDERED: MAGNESIUM SULFATE 2GM/50ML 50 ML IV ONE (08:00)
[2017-07-16] MEDS ORDERED: SINCALIDE 3 MCG/VIAL INJ ONE (08:03)
[2017-07-16 08:49] LABS: CREATINE KINASE MB 2.9 ng/mL (0-5.0)
[2017-07-16 10:45] VITALS: BP 115/74
--- NOTE | 2017-07-16 11:52 | Diagnostic Imaging Report ---
Hepatobiliary Scan with Gallbladder Ejection Fraction Clinical information: Upper abdominal pain x 3 days; 57 M with cirrhosis and portal hypertension Technique: Following intravenous administration of 6.0 millicuries of Tc-99m mebrofenin, dynamic images of the abdomen in the anterior projection were obtained through 45 minutes. Sincalide (CCK analog) 2.5 micrograms was administered intravenously over 30 minutes with additional imaging for determination of gallbladder ejection fraction. Discussion: Perfusion of the liver is normal. Extraction of tracer by the liver parenchyma is prolonged. Tracer appears promptly within the biliary tract. The gallbladder begins to fill at 20 minutes post injection of tracer and fills adequately. Tracer is seen in the small bowel during the sincalide infusion. There is no contractile response by the gallbladder to the pharmacologic dose of sincalide. No emptying of the gallbladder occurs during the 30 minute infusion. Impression: 1. Filling of the gallbladder excludes acute cystic duct obstruction/acute cholecystitis. 2. The gallbladder ejection fraction is undefined as there is no emptying of the gallbladder during the infusion of sincalide. This absence of a contractile response to sincalide supports the clinical diagnosis of chronic cholecystitis/gallbladder dyskinesia. 3. Prolonged extraction of tracer due to hepatocyte dysfunction consistent with cirrhosis. Signed by: Dr. Cecilia Perea M.D. on 07/16/2017 11:48 AM
[2017-07-16] MEDS: PANTOPRAZOLE 40 MG 10ML VIAL IV SCH ×2 (13:03→17:12)
[2017-07-16] MEDS: BUMETANIDE 1 MG TAB PO SCH (13:03)
[2017-07-16 16:00] VITALS: BP 116/70
[2017-07-16 20:00] VITALS: BP 134/79
--- NOTE | 2017-07-16 20:15 | Diagnostic Imaging Report ---
EXAM: MRI MRCP WO DATE: 07/16/2017 10:49 AM Time stamp on exam: 1146 hours INDICATION: Right upper quadrant pain COMPARISON: CT of the abdomen and pelvis with IV contrast July 15, 2017 and hepatobiliary nuclear medicine scan July 16, 2017 TECHNIQUE: Multiplanar and multisequence imaging was performed of the abdomen without the addition of IV contrast. MRCP protocol performed. FINDINGS: LOWER THORAX: Unremarkable. BILIARY: Simple cyst measuring 1 cm right lobe of the liver near the gallbladder. Small layering gallstones in the gallbladder. No wall thickening. Trace amount of fluid near the gallbladder cap. The common bile duct is small measuring 3 to 4 mm. No filling defects. No intrahepatic biliary dilation. SPLEEN: Splenomegaly to 16 cm in craniocaudal dimension. PANCREAS: Within normal limits, several sequences with motion artifact ADRENALS: Within normal limits, several sequences with motion artifact KIDNEYS/URETERS: Bilateral simple renal cysts, the largest measures 1.2 cm and the right kidney. GI TRACT: Within normal limits LYMPH NODES: No lymphadenopathy VESSELS: Splenic and esophageal varices. Left-sided portosystemic shunt. Chronic thrombosis of the main portal vein is better visualized by CT. PERITONEUM / RETROPERITONEUM: No free abdominal fluid. BONES: Unremarkable SOFT TISSUES: Unremarkable IMPRESSION: Cholelithiasis with trace pericholecystic fluid. There is no wall thickening. In combination with today's hepatobiliary scan, findings would be consistent with chronic cholecystitis/gallbladder dyskinesia. No evidence of choledocholithiasis. Splenomegaly and multiple varices. Chronic thrombosis of the main portal vein is better seen on prior CT with IV contrast. Signed by: Dr. Samantha Alejandre M.D. on 07/16/2017 8:11 PM
[2017-07-16] MEDS: INSULIN DETEMIR 100 UNIT/ML PEN SQ SCH (21:00)
[2017-07-16] MEDS ORDERED: ZOLPIDEM TARTRATE 10 MG TAB PO PRN (21:15)
[2017-07-17 00:22] VITALS: BP 100/55
[2017-07-17] MEDS: PIPER-TAZ 3.375 GM 50 ML IV SCH ×2 (04:13→09:13)
[2017-07-17 05:47] VITALS: BP 128/59
[2017-07-17 06:44] LABS: BASOPHILS % 0.9 % (0.0-1.0); EOSINOPHILS # (AUTO) 0.3 (0.0-0.4); EOSINOPHILS % 5.8 % (0.0-6.0); HEMATOCRIT 36.6 % (38.2-49.6); HEMOGLOBIN 12.8 g/dL (14.0-18.0); LYMPHOCYTES # (AUTO) 1.1 (1.0-3.2); LYMPHOCYTES % 23.2 % (18.0-39.1); MEAN CORPUSCULAR HEMOGLOBIN 31.4 pg (28-32); MEAN CORPUSCULAR VOLUME 89.7 fL (81-99); MONOCYTES # (AUTO) 0.5 (0.2-0.8); MONOCYTES % 10.1 % (4.4-11.3); NEUTROPHILS # (AUTO) 2.8 (2.1-6.9); NEUTROPHILS % 59.6 % (38.7-80.0); PLATELET COUNT 60 x10e3/uL (140-360); RED BLOOD COUNT 4.08 x10e6/uL (4.3-5.7); RED CELL DISTRIBUTION WIDTH 17.3 % (11.7-14.4)
[2017-07-17 07:18] LABS: ALBUMIN 2.1 g/dL (3.5-5.0); ALBUMIN/GLOBULIN RATIO 0.7 (0.8-2.0); ANION GAP 9.4 mmol/L (8-16); CALCIUM 7.7 mg/dL (8.4-10.2); CREATININE, SERUM 1.35 mg/dL (0.72-1.25); MAGNESIUM 1.4 MG/DL (1.3-2.1); POTASSIUM 3.4 mmol/L (3.5-5.1)
[2017-07-17 08:00] VITALS: BP 109/61
[2017-07-17] MEDS: INSULIN REGULAR, HUMAN 100 UNIT/1 ML 3ML VIAL SQ SCH ×2 (08:00→11:56)
[2017-07-17] MEDS: PANTOPRAZOLE 40 MG 10ML VIAL IV SCH (09:13)
[2017-07-17] MEDS: POTASSIUM CHLORIDE 20 MEQ TAB CR PO SCH (09:13)
[2017-07-17] MEDS: FUROSEMIDE 40 MG TAB PO SCH (09:13)
[2017-07-17] MEDS: BUMETANIDE 1 MG TAB PO SCH (09:13)
[2017-07-17] MEDS: RIFAXIMIN 550 MG TABLET PO SCH (09:13)
[2017-07-17] MEDS: NADOLOL 40 MG TAB PO SCH (09:13)
[2017-07-17 12:00] VITALS: BP 113/63
--- NOTE | 2017-07-17 15:08 | Discharge Summary ---
CONSULTANTS: Dr. Rodo Grissom and Dr. Mina Hudson. FINAL DIAGNOSES 1. Chronic cholecystitis. 2. Gallbladder dysfunction with ejection fraction of zero percent, undefined on hepato-iminodiacetic acid scan. 3. Hepatitis, most likely consistent with a history of liver cirrhosis, nonalcoholic steatohepatitis. 4. Jaundice with total bilirubin of 7.6, down from 9.9 yesterday. 5. Baseline liver cirrhosis. SUMMARY: Patient is a 57-year-old male who came in to the hospital because of increasing abdominal pain, nausea and vomiting. Pain was quite severe. Pain is now resolved. The patient was given pain medication control. He is doing much better. He is stable. Workup because of his increasing total bilirubin and also because of his pain, nausea and vomiting, patient may have had a gallbladder problem. CT scan showed possible cholecystitis acutely. HIDA scan, however, showed that the filling of the gallbladder excluded acute cystic duct obstruction or acute cholecystitis. The gallbladder ejection fraction, however, is nondefined and zero basically. The MRCP showed cholelithiasis with trace pericholecystic fluid. No wall thickening. It is consistent with chronic cholecystitis and gallbladder dyskinesia. The patient also has splenomegaly and multiple varices but no acute bleed. He does have chronic thrombosis of the main portal vein as well. 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 The patient is stable at this time. Platelets went up to 60,000 instead of 49,000 previously. The patient is stable. He will go home today. He will follow up with his GI specialist, [facility], for any further adjustment of his medication. The patient is stable. He is discharged today. Follow up as an outpatient as instructed. DISCHARGE MEDICATIONS 1. Levaquin 500 mg daily for 7 days. 2. Tramadol 50 mg q.4 p.r.n. for pain. 3. Zofran ODT 4 mg sublingual q.4 p.r.n. for nausea and vomiting. Patient is stable and discharged home today. Job#: [id number]
== END 2017-07-17 15:30 | disposition home or self-care (01) | DRG 444 ==
LOC: ER 23:11 → ERHOLD 07-15 04:38 → MED/SURG2 07-15 04:52
PROVIDERS: ADMIT Internal Medicine; ATTEND Internal Medicine
DX: K81.1 Chronic cholecystitis (principal); I81 Portal vein thrombosis; T86.42 Liver transplant failure; K76.6 Portal hypertension; E11.65 Type 2 diabetes mellitus with hyperglycemia; K75.81 Nonalcoholic steatohepatitis (NASH); R10.9 Unspecified abdominal pain; K80.10 Calculus of gallbladder with chronic cholecystitis without obstruction; K82.8 Other specified diseases of gallbladder; K74.60 Unspecified cirrhosis of liver; R16.1 Splenomegaly, not elsewhere classified
CPT/HCPCS: 36415; 71045; 74177; 74181; 78227; 80053; 81001; 82105; 82140; 82150; 82248; 82550; 82553; 82948; 83036; 83690; 83735; 84443; 84478; 84484; 85025; 85610; 85730; 86850; 86900; 93005; 96360; 96365; 96372; 96374; 96375; 99284; A9537; J1170; J2405; J2543; J2805; J7030; J7040; J7050; Q9967

== ENCOUNTER 2021-08-21 04:36 | Emergency (ER) | payer MEDICARE ==
[~2021-08-21] VITALS: Ht 193 cm; Wt 117.9 kg
[~2021-08-21 04:36] MED LIST changes: +AMBIEN10 MG PO; +BUMETANIDE2 MG; +BUMETANIDE2 MG PO; +LEVEMIR100 UNIT/1 SQ; +NEXIUM40 MG; +NOVOLOG100 UNITS1; +POTASSIUM CHLO10 MEQ PO; +XIFAXAN550 MG PO
[2021-08-21] MEDS ORDERED: DEXAMETHASONE SOD PHOS 10 MG/1 ML VIAL IM ONE (06:00)
[2021-08-21] MEDS ORDERED: DEXAMETHASONE SOD PHOS 10 MG/1 ML VIAL ONE (06:09)
== END 2021-08-21 06:06 | disposition home or self-care (01) ==
LOC: ER 04:41
DX: R05.9 Cough, unspecified (principal); J40 Bronchitis, not specified as acute or chronic; K76.9 Liver disease, unspecified
CPT/HCPCS: 71046; 99283; J1100

== ENCOUNTER 2021-11-12 11:19 | Emergency (ER) | payer MEDICARE, OTHER ==
[~2021-11-12] VITALS: Ht 193 cm; Wt 117.9 kg
[2021-11-12] MEDS ORDERED: SODIUM CHLORIDE 0.9% 1000ML 1,000 ML IV ONE (11:30)
[2021-11-12] MEDS ORDERED: LACTULOSE SYRUP 20 GM/30 ML UDC PO PRN (11:30)
[2021-11-12 12:05] LABS: INR 1.34; PROTHROMBIN TIME 17.7 seconds (11.9-14.5)
[2021-11-12 12:13] LABS: BASOPHILS % 1.3 % (0.0-1.0); EOSINOPHILS # (AUTO) 0.1 (0.0-0.4); EOSINOPHILS % 3.3 % (0.0-6.0); HEMATOCRIT 29.1 % (38.2-49.6); HEMOGLOBIN 9.7 g/dL (14.0-18.0); LYMPHOCYTES # (AUTO) 0.3 (1.0-3.2); MEAN CORPUSCULAR HEMOGLOBIN 28.3 pg (28-32); MEAN CORPUSCULAR HGB CONC 33.3 g/dL (31-35); MEAN CORPUSCULAR VOLUME 84.8 fL (81-99); MONOCYTES # (AUTO) 0.1 (0.2-0.8); MONOCYTES % 9.3 % (4.4-11.3); NEUTROPHILS % 63.4 % (38.7-80.0); RED BLOOD COUNT 3.43 x10e6/uL (4.3-5.7); RED CELL DISTRIBUTION WIDTH 17.2 % (11.7-14.4)
[2021-11-12 12:15] LABS: ALANINE AMINOTRANSFERASE 19 IU/L (0-55); ALBUMIN/GLOBULIN RATIO 0.7 (0.8-2.0); ALKALINE PHOSPHATASE 97 IU/L (40-150); ANION GAP 15.9 mmol/L (8-16); BLOOD UREA NITROGEN 15 mg/dL (7-26); BUN/CREATININE RATIO 6 (6-25); CALCIUM 8.2 mg/dL (8.4-10.2); CARBON DIOXIDE 31 mmol/L (22-29); CHLORIDE 96 mmol/L (98-107); CREATININE, SERUM 2.43 mg/dL (0.72-1.25); GLUCOSE 120 mg/dL (74-118); SODIUM 140 mmol/L (136-145)
[2021-11-12 12:16] LABS: PLATELET COUNT 49 x10e3/uL (140-360)
[2021-11-12 12:17] LABS: POTASSIUM 2.9 mmol/L (3.5-5.1)
[2021-11-12 13:15] LABS: EOSINOPHILS % (MANUAL) 1 % (0-7); LYMPHOCYTES % (MANUAL) 25 % (19-48); MONOCYTES % (MANUAL) 7 % (3.4-9.0); NEUTROPHILS % (MANUAL) 66 % (40-74)
[2021-11-12 13:16] LABS: PLATELET ESTIMATE MARKEDLY DECREASED; PLATELET MORPHOLOGY COMMENT FEW GIANT; RBC MORPHOLOGY COMMENT NORMAL
[2021-11-12 14:24] VITALS: BP 147/47
== END 2021-11-12 14:26 | disposition home or self-care (01) ==
LOC: ER 11:24
DX: R53.1 Weakness (principal); I12.0 Hypertensive chronic kidney disease with stage 5 chronic kidney disease or end stage renal disease; E11.22 Type 2 diabetes mellitus with diabetic chronic kidney disease; N18.6 End stage renal disease; Z99.2 Dependence on renal dialysis; E87.6 Hypokalemia; D61.818 Other pancytopenia; K74.60 Unspecified cirrhosis of liver; Z95.810 Presence of automatic (implantable) cardiac defibrillator
CPT/HCPCS: 0223U; 36415; 70450; 71045; 80053; 82140; 84484; 85025; 85610; 85730; 93005; 99284; J7030

== ENCOUNTER → 2022-01-05 | Outpatient (CLI) | payer MEDICARE | LOC: RAD 13:22 | DX: R05.9 Cough, unspecified (principal) | CPT/HCPCS: 71046 ==

== ENCOUNTER 2022-02-26 11:26 | Emergency (ER) | payer MEDICARE, OTHER ==
[~2022-02-26] VITALS: Ht 193 cm; Wt 117.9 kg
[2022-02-26] MEDS ORDERED: HYDROMORPHONE 1MG/1ML INJ ONE (13:43)
[2022-02-26] MEDS ORDERED: HYDROMORPHONE 2MG/ML 2 MG/ML ML IM ONE (16:30)
== END 2022-02-26 18:59 | disposition home or self-care (01) ==
LOC: ER 12:32
DX: S92.352A Displaced fracture of fifth metatarsal bone, left foot, initial encounter for closed fracture (principal); X58.XXXA Exposure to other specified factors, initial encounter; Y93.01 Activity, walking, marching and hiking; Y92.89 Other specified places as the place of occurrence of the external cause; E11.22 Type 2 diabetes mellitus with diabetic chronic kidney disease; N18.6 End stage renal disease; K76.9 Liver disease, unspecified; R94.31 Abnormal electrocardiogram [ECG] [EKG]; Z95.810 Presence of automatic (implantable) cardiac defibrillator
CPT/HCPCS: 73630; 93005; 99284; J1170